=== PATIENT | male | born 1980 | race Native Hawaiian/Other Pacific Islander ===

== ENCOUNTER 2023-02-04 02:57 | Emergency (ER) | payer SELFPAY ==
[~2023-02-04] VITALS: Ht 170.2 cm; Wt 104.3 kg
--- NOTE | 2023-02-04 03:15 | ED Abdominal Pain ---
General Stated Complaint: RIGHT SIDE ABD PAIN Source of Information: Patient Exam Limitations: No Limitations History of Present Illness Date Seen by Provider: Feb 04, 2023 Time Seen by Provider: 03:00 Initial Comments Patient is a 42-year-old male who presents to the emergency department with a chief complaint of abdominal discomfort onset about 10:00 this evening. He states he took 2 Tylenol and 2 ibuprofen around 2 AM without any relief of symptoms. He ate donuts this evening, nothing else. He had some Sudheer-Aid. He states he is felt a little nauseated. No vomiting, no black or bloody stools. He has not had a bowel movement today. No prior abdominal surgeries. Nothing makes the pain any worse. He rates it as "not so bad". Timing/Duration: 4-6 Hours Severity/Quality: Mild Location: RUQ, Epigastric Radiation: No Radiation Activities at Onset: None Associated Symptoms: Nausea/Vomiting (nausea without vomiting) Allergies and Home Medications Allergies Coded Allergies: No Known Drug Allergies (Unverified , 02/04/23) Patient Home Medication List Home Medication List Reviewed: Yes Review of Systems Review of Systems Constitutional: see HPI EENTM: No Symptoms Reported Respiratory: No Symptoms Reported Cardiovascular: No Symptoms Reported Gastrointestinal: Abdominal Pain, Nausea Genitourinary: No Symptoms Reported Musculoskeletal: no symptoms reported Skin: no symptoms reported Physical Exam Vital Signs Vital Signs - First Documented 02/04/23 03:05 Temp 36.6 Pulse 82 Resp 18 B/P (MAP) 137/100 (112) Pulse Ox 95 O2 Delivery Room Air Capillary Refill : Height/Weight/BMI Height: '" Weight: lbs. oz. kg; BMI Method: General Appearance: WD/WN, no apparent distress, obese HEENT: PERRL/EOMI Neck: full range of motion Respiratory: lungs clear, normal breath sounds, no respiratory distress, no accessory muscle use Cardiovascular: regular rate, rhythm Gastrointestinal: normal bowel sounds, non tender, soft; No distended, No guarding, No rebound, No tenderness Extremities: normal range of motion, normal inspection Neurologic/Psychiatric: alert, normal mood/affect, oriented x 3 Skin: normal color, warm/dry Progress/Results/Core Measures Results/Orders Lab Results Laboratory Tests Test 02/04/23 03:15 Range/Units White Blood Count 12.8 H 4.3-11.0 10^3/uL Red Blood Count 5.21 4.30-5.52 10^6/uL Hemoglobin 14.7 13.3-17.7 g/dL Hematocrit 44 40-54 % Mean Corpuscular Volume 84 80-99 fL Mean Corpuscular Hemoglobin 28 25-34 pg Mean Corpuscular Hemoglobin Concent 34 32-36 g/dL Red Cell Distribution Width 11.9 10.0-14.5 % Platelet Count 378 130-400 10^3/uL Mean Platelet Volume 8.8 L 9.0-12.2 fL Immature Granulocyte % (Auto) 1 % Neutrophils (%) (Auto) 73 42-75 % Lymphocytes (%) (Auto) 17 12-44 % Monocytes (%) (Auto) 3 0-12 % Eosinophils (%) (Auto) 6 0-10 % Basophils (%) (Auto) 0 0-10 % Neutrophils # (Auto) 9.3 H 1.8-7.8 10^3/uL Lymphocytes # (Auto) 2.2 1.0-4.0 10^3/uL Monocytes # (Auto) 0.4 0.0-1.0 10^3/uL Eosinophils # (Auto) 0.8 H 0.0-0.3 10^3/uL Basophils # (Auto) 0.0 0.0-0.1 10^3/uL Immature Granulocyte # (Auto) 0.1 0.0-0.1 10^3/uL My Orders Orders - GERALD DENISE MD Ed Iv/Invasive Line Start (02/04/23 03:20) Cbc And Automated Diff (02/04/23 03:20) Comprehensive Metabolic Panel (02/04/23 03:20) Vital Signs/I&O 02/04/23 03:05 Temp 36.6 Pulse 82 Resp 18 B/P (MAP) 137/100 (112) Pulse Ox 95 O2 Delivery Room Air Progress Progress Note : Time: 04:02 Progress Note Patient seen and evaluated by me. Evaluation today includes history and physical exam with CBC and Chem-12. Pertinent physical exam findings well- developed well-nourished obese male in no acute distress with stable vital signs. Heart is regular, lungs are clear. Abdomen is soft, nontender, no involuntary guarding or abnormal bowel sounds. Negative Griffith sign, no pain at McBurney's point. Differential diagnosis includes dyspepsia, gastroesophageal reflux, constipation Patient's labs independently reviewed and interpreted by me. His CBC shows a white blood cell count of 12.8, normal hemoglobin, hematocrit and platelet count. His chemistry is pertinent for only a mildly low potassium at 3.1, otherwise normal. He is treated in the emergency department with a dose of Levsin. No concerning findings on exam for an acute surgical process such as appendicitis or cholecystitis. More likely dyspepsia secondary to his diet of Sudheer-Aid and donuts. Recommend to the patient to follow-up with a primary care provider. Return precautions provided in both verbal and written format. All questions are sought and answered. Patient is stable for discharge. Departure Impression Primary Impression: Dyspepsia Disposition: HOME, SELF-CARE Condition: Stable Departure-Patient Inst. Decision time for Depature: 04:05 Referrals: [facility] [place] PHYSICIAN (PCP) Primary Care Physician Patient Instructions: Gastritis (DC) Add. Discharge Instructions: Try and follow a good diet. Increase vegetables high in potassium - such as green beans, broccoli, kale. Your potassium was a little low today. Over the counter PEPCID for stomach acid and discomfort - start taking one pill daily for the next 1-2 weeks. Monior your symptoms for worsening - fever, vomiting or increased pain - if these occur, please return to the Emergency Department for re-evaluation. You should follow up yearly with a primary care physician. GERALD DENISE MD Feb 04, 2023 03:15
[2023-02-04 03:28] LABS: BASOPHILS % (AUTO) 0 % (0-10); EOSINOPHILS # (AUTO) 0.8 10^3/uL (0.0-0.3); EOSINOPHILS % (AUTO) 6 % (0-10); HEMATOCRIT 44 % (40-54); HEMOGLOBIN 14.7 g/dL (13.3-17.7); LYMPHOCYTES # (AUTO) 2.2 10^3/uL (1.0-4.0); LYMPHOCYTES % (AUTO) 17 % (12-44); MEAN CORPUSCULAR HEMOGLOBIN 28 pg (25-34); MEAN CORPUSCULAR HGB CONC 34 g/dL (32-36); MEAN CORPUSCULAR VOLUME 84 fL (80-99); MEAN PLATELET VOLUME 8.8 fL (9.0-12.2); MONOCYTES # (AUTO) 0.4 10^3/uL (0.0-1.0); MONOCYTES % (AUTO) 3 % (0-12); NEUTROPHILS # (AUTO) 9.3 10^3/uL (1.8-7.8); NEUTROPHILS % (AUTO) 73 % (42-75); PLATELET COUNT 378 10^3/uL (130-400); WHITE BLOOD COUNT 12.8 10^3/uL (4.3-11.0)
[2023-02-04 03:32] LABS: ALBUMIN 4.2 GM/DL (3.2-4.5); POTASSIUM 3.1 MMOL/L (3.6-5.0)
[2023-02-04 03:34] LABS: CALCIUM 9.2 MG/DL (8.5-10.1)
[2023-02-04 03:35] LABS: TOTAL PROTEIN 8.2 GM/DL (6.4-8.2)
[2023-02-04 03:37] LABS: BILIRUBIN,TOTAL 0.4 MG/DL (0.1-1.0)
[2023-02-04 03:38] LABS: CREATININE SERUM 1.03 MG/DL (0.60-1.30)
[2023-02-04] MEDS ORDERED: HYOSCYAMINE 0.125 MG TABLET PO ONE (04:15)
[2023-02-04 04:51] VITALS: BP 141/91
== END 2023-02-04 04:51 | disposition home or self-care (01) ==
LOC: ER 03:00
DX: R10.13 Epigastric pain (principal); E66.9 Obesity, unspecified; Z68.36 Body mass index [BMI] 36.0-36.9, adult
CPT/HCPCS: 36415; 80053; 85025